=== PATIENT | male | born 1950 | race Caucasian/White ===

== ENCOUNTER 2019-03-28 13:30 | Emergency (ER) | payer MEDICARE, SELFPAY | END 2019-03-28 14:28 | disposition home or self-care (01) | PROVIDERS: Emergency Provider Emergency Medicine; Visit Provider Emergency Medicine | DX: S46.211A Strain of muscle, fascia and tendon of other parts of biceps, right arm, initial encounter (principal); X50.0XXA Overexertion from strenuous movement or load, initial encounter; Y92.009 Unspecified place in unspecified non-institutional (private) residence as the place of occurrence of the external cause | CPT/HCPCS: 73030; 99283 ==

== ENCOUNTER 2020-09-05 07:45 | Outpatient (CLI) | payer MEDICARE, SELFPAY ==
--- NOTE | 2020-09-05 08:28 | NMCV_ITS ---
NM adelina perf SPECT r/s* [id number] Anderson Hobbs Age: 70 Gender: M : 1950 Exam Date: 09/05/2020 09:17 Ordering Phys: Shandra Toro MD ([email or web address]) Technologist: KAE Muniz Exam Location: [facility] Indications: CHEST PAIN STRESS TEST Please see separate stress test report in [facility] for full findings IMAGE PROTOCOL Rest/Stress 1 Exercise Day Radiopharmaceutical Dose (mCi) Administration Site Administered by Rest: Tc-99m 11.0 IV KAE Muniz Sestamibi Stress:Tc-99m 32.9 IV KAE Araiza Sestamibi Rest: 05-Sep-2020 60 Discovery 630 Stress: 05-Sep-2020 20 Discovery 630 Radiopharmaceutical was injected at 85 % maximum heart rate. Images obtained in supine and prone position. SPECT RESULTS Technical Quality: Excellent Raw Data Analysis: Normal Image Corrections: No attenuation or motion correction applied Summed Stress Score: 2 Summed Rest Score: 3 Summed Difference Score: 1 PERFUSION FINDINGS Small sized perfusion abnormality of mild severity of mid inferior and apical lateral vidal on rest images with improved tracer uptake in stress images. This likely represents attenuation artifact. FUNCTIONAL RESULTS (calculated via Gated SPECT) Stress Image LV EF (%): 68 Stress EDV (mL):63 TID: 0.81 Stress ESV (mL):20 FUNCTIONAL FINDINGS: The left ventricle is normal in size. Transient Ischemia Dilatation of 0.81. There is normal left ventricular systolic function. The left ventricular ejection fraction is normal with a value of 68%. There is normal left ventricular wall thickening with no regional wall motion abnormality. Normal end diastolic and end systolic volumes. IMPRESSIONS 1. Myocardial perfusion imaging is normal. Attenuation artifact in mid inferior and apical lateral vidal. 2. Overall left ventricular systolic function is normal without regional wall motion abnormalities. 3. The left ventricular ejection fraction is normal with a value of 68%. 4. No coronary ischemia based on this study. Shandra Toro MD (Electronically Signed) Final Date: 07 September 2020 19:18 S
--- NOTE | 2020-09-05 08:28 | ECG_ITS ---
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 Interpretive Statements NAME OF STUDY: EXERCISE SESTAMIBI STRESS TEST INDICATION: Chest Pain Baseline blood pressure of 120/79 mm Hg, heart rate 59 beats per minute. EKG showed normal sinus rhythm, normal axis with normal ST-Ts. The patient exercised for 8 minutes 32 seconds on a modified Brendon protocol. Patient attained a maximum heart rate of 128 beats per minute(86% of the maximum predicted heart rate) with a blood pressure at the peak exercise of 178/79 mm Hg. The EKG at the peak exercise revealed sinus tachycardia with no significant ST-T wave changes. Patient did not have any chest pain or any significant arrhythmis with the exercise. Study was terminated as target heart rate was achieved and with exertional fatigue and shortness of breath. During the recovery phase, there were no new changes. Blood pressure at the end of the recovery phase was 152/76 mm Hg with a heart rate of 75 beats per minute. CONCLUSION: 1. Normal EKG response to treadmill exercise with modified Brendon protocol. 2. No exercise-induced chest pain or cardiac arrhythmia 3. Decreased exercise tolerance, attained a maximum of 6.6 METs. Maximum VO2 of 23.1 mL/kg/min. 4. Baseline normal blood pressure with normal response to exercise. 5. Perfusion scan will be documented separately. Electronically Signed On 09-08-2020 9:18:39 CDT by Shandra Toro M.D. [id number]
[2020-09-05 08:29] VITALS: BMI 26.8
[2020-09-05 10:01] VITALS: BP 159/77; PULSE 76
== END 2020-09-05 07:46 | disposition home or self-care (01) ==
PROVIDERS: Visit Provider Internal Medicine Cardiovascular Disease
DX: R07.9 Chest pain, unspecified (principal)
CPT/HCPCS: 78452; 93017; A9500

== ENCOUNTER 2020-09-13 11:27 | Emergency (ER) | payer MEDICARE, MEDICAID, SELFPAY ==
[2020-09-13 11:43] VITALS: BP 134/83; PULSE 70; RESP 16; TEMP 36.9; O2SAT 95
[2020-09-13 12:13] VITALS: BP 127/84; PULSE 64; RESP 16; O2SAT 96
--- NOTE | 2020-09-13 12:20 | XR_ITS ---
WS: [id number] Exam: XR chest 1V portable [id number] Date/Time of Exam: 09/13/2020 12:22 PM Reason For Exam: weakness, Comparison 11/17/2017. Findings: The lungs are clear and fully expanded. Costophrenic angles are sharp. No infiltrates. Bronchovascula r relief appears normal. Cardiac silhouette is unremarkable. Bony elements are intact. XR/XR chest 1V portable [id number] IMPRESSION: Unremarkable chest radiograph.
[2020-09-13 12:27] LABS: Basophils # 0.1 10^3/uL (0.0-0.1); Eosinophils # 0.3 10^3/uL (0.0-0.8); Eosinophils % 4.5 %; Hematocrit 40.4 % (42.0-52.0); Lymphocytes # 1.4 10^3/uL (0.8-4.8); Lymphocytes % 22.2 %; Mean Corpuscular HGB Conc 34.7 g/dL (30.0-36.0); Mean Corpuscular Hemoglobin 28.3 pg (28.0-34.0); Mean Corpuscular Volume 81.6 fL (80-94); Mean Platelet Volume 9.8 fL (7.4-10.4); Monocytes # 0.6 10^3/uL (0.2-0.9); Monocytes % 9.6 %; Neutrophils # 3.91 10^3/uL (1.8-7.7); Neutrophils % 62.5 %; Nucleated Red Blood Cells % 0 %; Platelet Count 201 10^3/cmm (130-400); Red Blood Count 4.95 10^6/uL (4.1-5.3); Red Cell Distribution Width 12.5 % (12.1-15.1); White Blood Count 6.3 10^3/uL (4.0-10.0)
--- NOTE | 2020-09-13 12:32 | ECG_ITS ---
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 Measurements Intervals [place] Rate: 61 P: 38 [place]: 167 QRS: 28 QRSD: 95 T: 51 QT: 405 QTc: 408 Interpretive Statements SINUS RHYTHM No previous ECG available for comparison Electronically Signed On 09-13-2020 17:46:02 CDT by Irina Johnson M.D. [id number]
[2020-09-13 12:57] VITALS: BP 127/84; PULSE 52; RESP 18; O2SAT 95
[2020-09-13 12:57] LABS: Troponin(5th) Baseline 11 ng/L (0-15)
[2020-09-13 12:58] LABS: Alanine Aminotransferase 22 U/L (0-41); Albumin Level 3.9 g/dL (3.5-5.2); Alkaline Phosphatase 95 IU/L (40-130); Anion Gap 13.9 (5-19); Aspartate Amino Transferase 19 U/L (0-40); Blood Urea Nitrogen 17 mg/dL (8-23); Calcium 8.8 mg/dL (8.5-10.5); Carbon Dioxide 25 mmol/L (22-29); Chloride 105 mmol/L (98-107); Creatine Phosphokinase 84 U/L (39-308); Globulin 2.3 g/dL (1.3-4.6); Glucose 106 mg/dL (65-115); Osmolality Calculated 292 mOsm/kg (285-295); Potassium 3.9 mmol/L (3.5-5.1); Sodium 140 mmol/L (136-145); Total Bilirubin 0.7 mg/dL (0.15-1.2); Total Protein 6.2 g/dL (6.6-8.7)
[2020-09-13 13:51] VITALS: BP 117/68; PULSE 51; RESP 16; O2SAT 95
[2020-09-13 13:57] VITALS: BP 117/68; PULSE 56; RESP 18; TEMP 36.6; O2SAT 96
--- NOTE | 2020-09-13 13:58 | W.ED.GENADLT ---
HPI - General Adult General: Chief complaint: General Medical Stated complaint: Extremely fatigued Time Seen by Provider: 09/13/20 12:05 History of Present Illness: HPI narrative: Slovak-speaking gentleman from home who is here with his granddaughter who is offering translation and they declined an official manager professional development. They are here because he has had extreme fatigue he denies any chest discomfort he occasionally feels dizzy she is interpreting for him and he has been making jokes that the granddaughter is interpreting back he denies any shortness of breath or sweaty just more that he feels so fatigued with everything he does. Denies palpitations syncope occasional dizziness denies any shortness of breath denies any family history or cardiac history he takes a medication called VAlCORDIN that are drops for nerves and restlessness and sleeping on a as needed basis he has no other cardiac history he did have a recent stress test from a drawing checker that was negative. Denies any headaches denies any numbness tingling changes in gait Review of Systems Narrative: General: denies fatigue, fever or chills HEENT: denies ear pain, denies nasal congestion, denies vision changes, denies sore throat Neck: denies masses or pain Resp: denies cough, denies shortness of breath, denies pleuritic pain Cardio: denies chest pain, denies edema GI: denies abdominal pain, denies N/V/D, denies black/tarry or bloody stools : denies hematuria, denies dysuria Neuro: denies headache, originally told granddaughter of some dizziness but denies it to me, denies motor or sensory changes Musculoskeletal: denies pain, denies swelling Skin: denies rashes Psych: denies SI or HI Endocrine: denies thyroid symptoms, denies lymphadenopathy all over ROS reviewed and patient denies PFSH ED PFSH: Medical History Acromioclavicular joint arthritis Family History Other No pertinent family history Social History Smoking and tobacco status: never smoked Second hand smoke exposure: No Alcohol intake: never Physical Exam Narrative: EXAM NARRATIVE: General: a/o/3, no distress Head: atraumatic HEENT: normal eyes, normal conjunctiva, normal hearing, normal external nose, normal mouth, mucous membranes moist Neck: FROM, trachea midline Chest: normal expansion, no gross deformities Resp: normal speech, no retractions, no accessory muscle use, CTA bilaterally Cardio: regular rate and rhythm and no murmur, no peripheral edema, normal peripheral pulses GI: soft, flat non tender, no guarding normal BS : deferred Musculoskeletal: FROM, no pain or gross deformities Neuro: a/o appropriate for age, no gross motor or sensory deficits, CN II-XII grossly intact, normal coordination, normal speech Skin: no rashes Psych: cooperative, normal mood and effect Course Vital Signs: Vital signs: Vital Signs Temperature 97.8 F 09/13/20 13:57 Pulse Rate 56 L 09/13/20 13:57 Respiratory Rate 18 09/13/20 13:57 Blood Pressure 117/68 09/13/20 13:57 Pulse Oximetry 96 09/13/20 13:57 MDM - General Adult MDM Narrative: Medical decision making narrative: Reviewed patient's chart he had a negative stress test recently and was seen by cardiology. Per nursing staff they felt that when he immediately got put on the monitor that he possibly had a heart rate in the 30s however we went back to the monitor and the only rhythm strips I pulled his heart rate were in the 60s. Patient's heart rate remained in the 60s his laboratory work is completely unremarkable including a chest x-ray discussed with the granddaughter who interpreted to the patient about doing a CT scan due to some recent dizziness however patient says he feels much better now that it must be the emergency room air that made him feel better. Discussed with him possibility of a Holter monitor whether he is having bradycardic spells and/or sick sinus syndrome. Spoke with his drawing checker Dr. Toro and she is going to arrange for him to have a Holter monitor and in fact he can go over there today and get it put on. Discussed with her and she interpreted to him that I cannot rule out all causes out of the emergency department recommended he get a CT scan he declines that and patient will be discharged to the heart care center to get his Holter monitor Medical Records: Attestation: I reviewed the patient's medical records. Lab Data: Attestation: I reviewed the patient's lab results. Labs: Lab Results 09/13/20 09/13/20 09/13/20 Range/Units 12:10 12:10 12:10 WBC 6.3 (4.0-10.0) 10^3/ uL RBC 4.95 (4.1-5.3) 10^6/u L Hgb 14.0 (11.7-16.6) g/dL Hct 40.4 L (42.0-52.0) % MCV 81.6 (80-94) fL MCH 28.3 (28.0-34.0) pg MCHC 34.7 (30.0-36.0) g/dL RDW 12.5 (12.1-15.1) % Plt Count 201 (130-400) 10^3/c mm MPV 9.8 (7.4-10.4) fL Neut % (Auto) 62.5 % Lymph % (Auto) 22.2 % Dunn % (Auto) 9.6 % Eos % (Auto) 4.5 % Baso % (Auto) 1.0 % Neut # (Auto) 3.91 (1.8-7.7) 10^3/u L Lymph # (Auto) 1.4 (0.8-4.8) 10^3/u L Dunn # (Auto) 0.6 (0.2-0.9) 10^3/u L Eos # (Auto) 0.3 (0.0-0.8) 10^3/u L Baso # (Auto) 0.1 (0.0-0.1) 10^3/u L Nucleated RBC % (a uto) 0 % Nucleated RBCs # 0.0 /100WBC Sodium 140 (136-145) mmol/L Potassium 3.9 (3.5-5.1) mmol/L Chloride 105 (98-107) mmol/L Carbon Dioxide 25 (22-29) mmol/L Anion Gap 13.9 (5-19) BUN 17 (8-23) mg/dL Creatinine 0.7 (0.7-1.2) mg/dL GFR Calculation Not Reportable Glucose 106 (65-115) mg/dL Calculated Osmolal ity 292 (285-295) mOsm/k g Calcium 8.8 (8.5-10.5) mg/dL Total Bilirubin 0.7 (0.15-1.2) mg/dL AST 19 (0-40) U/L ALT 22 (0-41) U/L Alkaline Phosphata se 95 (40-130) IU/L Creatine Kinase 84 (39-308) U/L Troponin T Baselin e 11 (0-15) ng/L Troponin T 120 Min [place] (0-15) ng/L Delta Troponin T (0-10) ABS# Total Protein 6.2 L (6.6-8.7) g/dL Albumin 3.9 (3.5-5.2) g/dL Globulin 2.3 (1.3-4.6) g/dL 09/13/20 Range/Units 13:43 WBC (4.0-10.0) 10^3/ uL RBC (4.1-5.3) 10^6/u L Hgb (11.7-16.6) g/dL Hct (42.0-52.0) % MCV (80-94) fL MCH (28.0-34.0) pg MCHC (30.0-36.0) g/dL RDW (12.1-15.1) % Plt Count (130-400) 10^3/c mm MPV (7.4-10.4) fL Neut % (Auto) % Lymph % (Auto) % Dunn % (Auto) % Eos % (Auto) % Baso % (Auto) % Neut # (Auto) (1.8-7.7) 10^3/u L Lymph # (Auto) (0.8-4.8) 10^3/u L Dunn # (Auto) (0.2-0.9) 10^3/u L Eos # (Auto) (0.0-0.8) 10^3/u L Baso # (Auto) (0.0-0.1) 10^3/u L Nucleated RBC % (a uto) % Nucleated RBCs # /100WBC Sodium (136-145) mmol/L Potassium (3.5-5.1) mmol/L Chloride (98-107) mmol/L Carbon Dioxide (22-29) mmol/L Anion Gap (5-19) BUN (8-23) mg/dL Creatinine (0.7-1.2) mg/dL GFR Calculation Glucose (65-115) mg/dL Calculated Osmolal ity (285-295) mOsm/k g Calcium (8.5-10.5) mg/dL Total Bilirubin (0.15-1.2) mg/dL AST (0-40) U/L ALT (0-41) U/L Alkaline Phosphata se (40-130) IU/L Creatine Kinase (39-308) U/L Troponin T Baselin e (0-15) ng/L Troponin T 120 Min [place] 11.94 (0-15) ng/L Delta Troponin T 0.94 (0-10) ABS# Total Protein (6.6-8.7) g/dL Albumin (3.5-5.2) g/dL Globulin (1.3-4.6) g/dL EKG Data^: EKG 1: Attestation: I personally reviewed and interpreted this EKG as follows: EKG interpretation date: 09/13/20 EKG interpretation time: 11:59 Interpretation: Normal sinus rhythm rate [address] changes or elevation Computer generated interpretation: Chest X-Ray 09/13/20 12:20 IMPRESSION: Unremarkable chest radiograph. Discharge Plan Discharge Patient Disposition: Home Clinical Impression: Fatigue, Weakness Condition: Stable Prescriptions: No Action No Known Home Medications RF: 0 Discharge Orders: Discharge ED (Routine); Ordered 09/13/20 Ordered By: Anamika Owen Referrals: Shandra Toro MD [Physician] - (call for follow up) Discharge Diet: Advance as tolerated and Usual diet Discharge Activity: Resume usual activity Patient Instructions: Fatigue, Weakness (ED) Activity Restrictions/Additional Instructions: You are to go to the heart care Center at discharge and get a Holter monitor as ordered by your drawing checker you need to follow-up with your drawing checker Dr. Barrientos return to the emergency department if chest pain worsening of symptoms passing out headaches vision changes weakness or dizziness Thank you for choosing [facility] for your healthcare needs today. Please realize this is an emergency room and that we are providing you with a medical screening exam and this may not be complete and all inclusive of all the testing and or work up that you may need to determine your ailment or severity of your illness. It is very important that you follow up as instructed or that you return to the Emergency Department should you have concerns or if your condition changes or worsens in any way. Coding Level of Care Code ED Preparation Department Supervisor for Juan Antonio Scales
[2020-09-13 14:33] LABS: Troponin 5 2HR 11.94 ng/L (0-15); Troponin 5 2HR Delta 0.94 ABS# (0-10)
== END 2020-09-13 13:57 | disposition home or self-care (01) ==
PROVIDERS: Emergency Provider Emergency Medicine
DX: R53.83 Other fatigue (principal); R53.1 Weakness
CPT/HCPCS: 71045; 80053; 82550; 84484; 85025; 93005; 99283

== ENCOUNTER 2021-11-21 19:56 | Emergency (ER) | payer MEDICARE, MEDICAID, SELFPAY ==
[2021-11-21 20:12] VITALS: BP 130/76; PULSE 65; RESP 16; TEMP 36.6; O2SAT 95
--- NOTE | 2021-11-21 20:36 | XRR_ITS ---
PROCEDURE INFORMATION: Exam: XR Left Shoulder Exam date and time: 11/21/2021 8:48 PM Age: 71 years old Clinical indication: Injury or trauma; Other: Lifting injury; Sprain or strain; Humerus and shoulder; Left; Patient HX: Was lifting car santana and felt a pop TECHNIQUE: Imaging protocol: Radiologic exam of the Left shoulder. Views: 2 or more views. COMPARISON: CR XR chest 1V portable [id number] 09/13/2020 12:19 PM FINDINGS: Bones/joints: No acute fracture or malalignment. Moderate acromioclavicular and glenohumeral joint degenerative changes. Soft tissues: Normal. XR/XR shoulder LT min 2V* [id number] IMPRESSION: No acute fracture or malalignment.
--- NOTE | 2021-11-21 20:43 | XRR_ITS ---
PROCEDURE INFORMATION: Exam: XR Left Humerus Exam date and time: 11/21/2021 8:53 PM Age: 71 years old Clinical indication: Injury or trauma; Other: Lifting injury; Sprain or strain; Arm, upper and shoulder; Left; Patient HX: Was lifting car santana and felt a pop TECHNIQUE: Imaging protocol: Radiologic exam of the Left humerus. Views: 2 or more views. COMPARISON: CR XR shoulder LT min 2V* [id number] 11/21/2021 8:48 PM FINDINGS: Bones/joints: No acute fracture or malalignment. Soft tissues: Normal. XR/[place] [id number] IMPRESSION: No acute fracture or malalignment.
--- NOTE | 2021-11-21 20:44 | ED_ITS ---
HPI - Extremity Problem General: Chief complaint: Extremity Injury, Upper Stated complaint: left arm injury Time Seen by Provider: 11/21/21 20:37 Source: patient Mode of arrival: ambulatory Limitations: no limitations History of Present Illness: 71-year-old male states that he was lifting a car santana roughly 2 hours ago he states he felt a sudden pop in his left arm and left upper arm and shoulder pain since then the pain is sharp in nature much worse with movement he states having a hard time lifting that arm denies any other injuries denies neck pain. Associated symptoms: Deny chest pain, fever(s) or rash Review of Systems Const: Denies: fever(s), chills, body aches or change in appetite Eyes: Denies: blurry vision or eye discomfort ENMT: Denies: throat pain or dental pain Card: Denies: chest pain Resp: Denies: dyspnea GI: Denies: abdominal pain, nausea, vomiting or diarrhea : Denies: dysuria Musc: Reports: extremity pain; Denies: neck pain or back pain Skin/Breast: Denies: rash Neuro: Denies: headache(s) Psych: Denies: depression Abdias/Lymph: Denies: easy bruising All/Imm: Denies: urticaria PFSH ED PFSH: Medical History Acromioclavicular joint arthritis Family History Other No pertinent family history Social History Smoking and tobacco status: never smoked Second hand smoke exposure: No Alcohol intake: never Physical Exam Const: COMMON NORMALS: no acute distress, patient oriented x3 and healthy appearing HENMT: COMMON NORMALS: normocephalic and atraumatic HEAD & SCALP: normocephalic and atraumatic Eye: COMMON NORMALS: Equal, round and reactive pupils present and EOMs intact bilaterally PUPIL: Yes Equal, round and reactive pupils present Neck/C-Spine: COMMON NORMALS: full ROM and supple Chest: COMMONS NORMALS: normal inspection of the chest Resp: COMMON NORMALS: normal respiratory effort and No retractions Cardio: COMMON NORMALS: regular rate, regular rhythm and No murmurs present (Cardio) RATE: regular rate RHYTHM: regular rhythm GI: INSPECTION: Yes normal to inspection Extremity: NARRATIVE EXTREMITY EXAM: Tenderness over left shoulder and upper arm has pain with movement he is not able lift his arm above his head distal pulses sensation intact no deformity noted Neuro: COMMON NORMALS: patient oriented x3, moves all extremities and no focal motor deficits Psych: COMMON NORMALS: mental status grossly normal, Normal thought process present and cooperative THOUGHT PROCESS: Normal thought process present Skin: COMMON NORMALS: no rashes or lesions noted and no wounds GENERAL SKIN EXAM: no rashes or lesions noted Course Vital Signs: Vital signs: Vital Signs Temperature 97.8 F 11/21/21 20:12 Pulse Rate 69 11/21/21 20:48 Respiratory Rate 16 11/21/21 20:48 Blood Pressure 135/85 11/21/21 20:48 Pulse Oximetry 96 11/21/21 20:48 Oxygen Delivery Me thod 11/21/21 20:48 MDM - Extremity (Nontraumatic) Medical Decision Making Patient presents here with a shoulder sprain. X-ray shows no fracture we will place him in a sling getting follow-up orthopedics he is to return if worsening he understands agrees to plan. Discharge Plan Discharge Patient Disposition: Home Clinical Impression: Sprain of left shoulder Qualifiers: Encounter type: initial encounter Shoulder sprain type: unspecified sprain Qualified Code(s): S43.402A - Unspecified sprain of left shoulder joint, initial encounter Condition: Stable Prescriptions: New Naprosyn 500 mg tablet 500 mg PO BID PRN (Reason: pain) Qty: 20 0RF No Action Valocordin .Route PRN Rx Instructions: 15-20 drops PRN Discharge Orders: Discharge ED (Routine); Ordered 11/21/21 Ordered By: Mercedes Campbell Referrals: Guy Atkins DO [Physician] - 1-3 days Discharge Diet: Low Cholesterol Discharge Activity: Resume usual activity Patient Instructions: Shoulder Sprain (ED) Coding Level of Care Code ED Circular Ripsaw Operator for Juan Antonio Scales Exam Comprehensive
[2021-11-21] MEDS: HYDROcodone-acetaminophen 5-325 mg Tablet 1 TAB PO (20:45)
[2021-11-21 20:48] VITALS: BP 135/85; PULSE 69; RESP 16; O2SAT 96
[2021-11-21 21:46] VITALS: BP 129/87; PULSE 67; RESP 18; O2SAT 97
--- NOTE | 2021-11-22 12:15 | DCPLANNER ---
Addendum entered by Masha Hwang 11/30/21 12:48: Patient had a follow up appointment scheduled for 11.27.21 with ortho - patient attended appointment. Original Note: manager of digital had message to schedule a follow up appointment for patient with ortho. manager of digital sent patients information to the front office staff at ortho. Patients information will be printed and reviewed. Clinic will call patient with appointment information.
== END 2021-11-21 21:49 | disposition home or self-care (01) ==
PROVIDERS: Emergency Provider Emergency Medicine
DX: S43.402A Unspecified sprain of left shoulder joint, initial encounter (principal); X50.0XXA Overexertion from strenuous movement or load, initial encounter
CPT/HCPCS: 73030; 73060; 99283

== ENCOUNTER → 2021-11-27 10:28 | Outpatient (BNVA) | payer MEDICARE, MEDICAID, SELFPAY | PROVIDERS: Visit Provider Nurse Practitioner Family | DX: S43.422A Sprain of left rotator cuff capsule, initial encounter (principal); X50.9XXA Other and unspecified overexertion or strenuous movements or postures, initial encounter | CPT/HCPCS: 99213; 99214 ==

== ENCOUNTER 2022-03-21 08:49 | Emergency (ER) | payer MEDICARE, MEDICAID, SELFPAY ==
[2022-03-21] VITALS (9 sets, daily range): BP systolic 110–140; BP diastolic 66–81; PULSE 49–61; RESP 11–23; TEMP 36.4; O2SAT 95–97; BMI 26.4
--- NOTE | 2022-03-21 09:27 | CT_ITS ---
WS: [id number] CT ABDOMEN AND PELVIS NONCONTRAST HISTORY: Abdominal pain, LEFT lower quadrant. TECHNIQUE: Imaging performed through the abdomen and pelvis. Coronal and sagittal reformats are submi tted. All CT scans at [facility] use at least one of these dose optimization techniques: auto mated exposure control; mA and/or kV adjustment per patient size (includes targeted exams where dose is matched to clinical indication); or iterative reconstruction. DLP: 513.67 mGy.cm COMPARISON: 08/18/2013 Lower thorax: Subcentimeter noncalcified nodules at the lung bases, unchanged since 2013. No pneumoni a. Heart is mildly enlarged. Liver: Normal size liver. No mass or bile duct dilatation. Gallbladder: Normal gallbladder. Pancreas: Normal size and attenuation. Normal pancreatic duct. No pancreatitis or mass. Spleen: Normal. Adrenal glands: Normal. No mass. Right kidney: Normal size kidney with no mass or hydronephrosis. Left kidney: Normal size kidney with no mass or hydronephrosis. Aorta: Mild atherosclerosis abdominal aorta with no aneurysm. No free fluid, intraperitoneal air or significant lymphadenopathy. GI tract: Prior appendectomy. Stomach is nondistended. No small bowel obstruction. No diverticulosis. No submucosal edema within the colon. Abdominal wall: Negative. No hernia. Pelvis: Unremarkable urinary bladder. Mild prostate enlargement. Osseous structures: Degenerative thoracolumbar scoliosis. CT/CT abdomen pelvis wo con [id number] IMPRESSION: 1. No acute abdominal or pelvic abnormalities. 2. Prior appendectomy. 3. No evidence for diverticulosis or diverticulitis. 4. No renal obstruction.
--- NOTE | 2022-03-21 09:28 | PC.PHAR ---
PTS GRANDSON VERIFIED PTS MEDICATIONS-STATES THE PT TAKES NO RX MEDICATIONS AND ONLY TAKES ASPIRIN PRN
[2022-03-21] MEDS: sodium chloride 0.9% 1,000 ML 999 ML IV (09:40)
--- NOTE | 2022-03-21 09:40 | ECG_ITS ---
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 Measurements Intervals [place] Rate: 55 P: 32 RI: 164 QRS: 29 QRSD: 96 T: 54 QT: 427 QTc: 411 Interpretive Statements SINUS BRADYCARDIA Compared to ECG 09/13/2020 11:59:09 Sinus rhythm no longer present Electronically Signed On 03-21-2022 12:56:53 DEVELOPER PROGRAMMER ANALYST by Juve Andre M.D. [email or web address] centerArt [facility] [facility] shawTherabiol/store/OM/[id number]
[2022-03-21 09:43] LABS: Basophils % 0.7 %; Eosinophils # 0.3 10^3/uL (0.0-0.8); Eosinophils % 5.5 %; Hematocrit 44.7 % (42.0-52.0); Hemoglobin 15.1 g/dL (11.7-16.6); Lymphocytes # 1.2 10^3/uL (0.8-4.8); Lymphocytes % 19.9 %; Mean Corpuscular HGB Conc 33.8 g/dL (30.0-36.0); Mean Corpuscular Hemoglobin 28.3 pg (28.0-34.0); Mean Corpuscular Volume 83.7 fl (80-94); Mean Platelet Volume 9.9 fL (7.4-10.4); Monocytes # 0.6 10^3/uL (0.2-0.9); Monocytes % 9.5 %; Neutrophils # 3.75 10^3/uL (1.8-7.7); Neutrophils % 64.4 %; Nucleated Red Blood Cells % 0 %; Platelet Count 208 10^3/cmm (130-400); Red Blood Count 5.34 10^6/uL (4.1-5.3); Red Cell Distribution Width 12.7 % (12.1-15.1); White Blood Count 5.8 10^3/uL (4.0-10.0)
[2022-03-21 10:03] LABS: Alanine Aminotransferase 30 U/L (0-41); Alkaline Phosphatase 104 U/L (40-130); Aspartate Amino Transferase 24 U/L (0-40); Blood Urea Nitrogen 15 mg/dL (8-23); Calcium 9.2 mg/dL (8.5-10.5); Carbon Dioxide 28 mmol/L (22-29); Chloride 104 mmol/L (98-107); Globulin 3.2 g/dL (1.3-4.6); Glucose 105 mg/dL (65-115); Lipase 33 U/L (13-60); Osmolality Calculated 291 mOsm/kg (285-295); Sodium 140 mmol/L (136-145); Total Bilirubin 0.7 mg/dL (0.15-1.2); Total Protein 7.2 g/dL (6.6-8.7)
--- NOTE | 2022-03-21 10:13 | W.ED.ABDPA2 ---
HPI - Abdominal Pain General: Chief Complaint: Abdominal Pain Stated Complaint: abd pain Time Seen by Provider: 03/21/22 09:06 Source: patient Mode of arrival: ambulatory History of Present Illness: 72-year-old male presents emergency room for left lower quadrant pain that began yesterday late in the afternoon. He has been in usual bowel and bladder function without any problems denies any hematemesis coffee-ground emesis melena or hematochezia. Was has not is mild low-grade fever loss of appetite. No dysuria urgency frequency or hematuria. No chest pain no cough or shortness of breath MD elicited complaint: abdominal pain Pertinent past history: none Onset (ago): hour(s) Pain Consistency: constant Location: LLQ Severity: mild Quality: cramping Radiation: none Exacerbating factors: other (Palpation) Relieving factors: nothing Associated Symptoms: Reports bloating, GI cramping, fever(s) and nausea; Denies anorexia, belching, change in bowel habits, change in stool character, chills, coffee ground emesis, constipation, diarrhea, dyspepsia, dysuria, excessive flatus, heartburn, hematochezia, hematuria, hematemesis, fecal incontinence, loose stools, melena, poor appetite, syncope and vomiting Review of Systems Const: Reports: fever(s); Denies: chills ENMT: Denies: throat pain, ear or mastoid pain, nasal discharge or nasal congestion Card: Denies: syncope Resp: Denies: dyspnea, productive cough or non-productive cough GI: Reports: abdominal pain, nausea, bloating and GI cramping; Denies: vomiting, hematemesis, coffee ground emesis, heartburn, diarrhea, constipation, belching, excessive flatus, fecal incontinence, change in bowel habits, change in stool character, hematochezia or melena : Denies: dysuria or hematuria Skin/Breast: Denies: rash or pruritus PFSH ED PFSH: Medical History Acromioclavicular joint arthritis Family History Other No pertinent family history Social History Smoking and tobacco status: never smoked Second hand smoke exposure: No Alcohol intake: never Physical Exam Const: COMMON NORMALS: no acute distress GENERAL APPEARANCE: cooperative and comfortable ORIENTATION/CONSCIOUSNESS: Yes awake HENMT: COMMON NORMALS: normocephalic, atraumatic and hearing grossly normal bilaterally HEAD & SCALP: normocephalic and atraumatic Resp: COMMON NORMALS: normal respiratory effort, No retractions, No use of accessory muscles and clear to auscultation bilaterally AUSCULTATION: clear to auscultation bilaterally Cardio: COMMON NORMALS: regular rate, regular rhythm and No murmurs present (Cardio) RATE: regular rate RHYTHM: regular rhythm GI: COMMON NORMALS: Soft to palpation and No hepatosplenomegaly present AUSCULTATION: Yes normoactive bowel sounds PALPATION: Yes Soft to palpation, Yes Tenderness to palpation present (GI) Details: LLQ, No Guarding due to palpation present (GI) and Yes No hepatosplenomegaly present Extremity: COMMON NORMALS: normal to inspection, capillary refill normal, no clubbing, cyanosis or edema, no calf tenderness and no pedal edema Skin: COMMON NORMALS: no rashes or lesions noted GENERAL SKIN EXAM: no rashes or lesions noted Course Vital Signs: Vital signs: Vital Signs Temperature 97.5 F L 03/21/22 09:10 Pulse Rate 54 L 03/21/22 12:30 Respiratory Rate 17 03/21/22 12:30 Blood Pressure 110/66 03/21/22 12:30 Pulse Oximetry 97 03/21/22 12:30 Oxygen Delivery Me thod 03/21/22 09:36 MDM - Abdominal Pain Medical Decision Making His pain is very focal to the left lower quadrant. CT did not show any acute diverticulitis however I am suspicious he may have some inflammation in the bowel that are causing his symptoms we did put him on Cipro and Flagyl if not improving over the next week should follow-up with his primary care doctor. Medical Records I reviewed the patient's medical records. Lab Data I reviewed the patient's lab results. 03/21/22 09:30 03/21/22 09:30 Labs/Radiology: Radiology Impressions Abdomen/Pelvis CT 03/21/22 09:27 IMPRESSION: 1. No acute abdominal or pelvic abnormalities. 2. Prior appendectomy. 3. No evidence for diverticulosis or diverticulitis. 4. No renal obstruction. Laboratory Results WBC 5.8 10^3/uL (4.0-10.0) 03/21/22 09:30 RBC 5.34 10^6/uL (4.1-5.3) H 03/21/22 09:30 Hgb 15.1 g/dL (11.7-16.6) 03/21/22 09:30 Hct 44.7 % (42.0-52.0) 03/21/22 09:30 MCV 83.7 fl (80-94) 03/21/22 09:30 MCH 28.3 pg (28.0-34.0) 03/21/22 09:30 MCHC 33.8 g/dL (30.0-36.0) 03/21/22 09:30 RDW 12.7 % (12.1-15.1) 03/21/22 09:30 Plt Count 208 10^3/cmm (130-400) 03/21/22 09:30 MPV 9.9 fL (7.4-10.4) 03/21/22 09:30 Neut % (Auto) 64.4 % 03/21/22 09:30 Lymph % (Auto) 19.9 % 03/21/22 09:30 [place] % (Auto) 9.5 % 03/21/22 09:30 Eos % (Auto) 5.5 % 03/21/22 09:30 Baso % (Auto) 0.7 % 03/21/22 09:30 Neut # (Auto) 3.75 10^3/uL (1.8-7.7) 03/21/22 09:30 Lymph # (Auto) 1.2 10^3/uL (0.8-4.8) 03/21/22 09:30 [place] # (Auto) 0.6 10^3/uL (0.2-0.9) 03/21/22 09:30 Eos # (Auto) 0.3 10^3/uL (0.0-0.8) 03/21/22 09:30 Baso # (Auto) 0.0 10^3/uL (0.0-0.1) 03/21/22 09:30 Nucleated RBC % (auto) 0 % 03/21/22 09:30 Nucleated RBCs # 0.0 /100WBC 03/21/22 09:30 Sodium 140 mmol/L (136-145) 03/21/22 09:30 Potassium 4.0 mmol/L (3.5-5.1) 03/21/22 09:30 Chloride 104 mmol/L (98-107) 03/21/22 09:30 Carbon Dioxide 28 mmol/L (22-29) 03/21/22 09:30 Anion Gap 12.0 (5-19) 03/21/22 09:30 BUN 15 mg/dL (8-23) 03/21/22 09:30 Creatinine 0.8 mg/dL (0.7-1.2) 03/21/22 09:30 GFR Calculation Not Reportable 03/21/22:30 Glucose 105 mg/dL (65-115) 03/21/22 09:30 Calculated Osmolality 291 mOsm/kg (285-295) 03/21/22 09:30 Calcium 9.2 mg/dL (8.5-10.5) 03/21/22 09:30 Total Bilirubin 0.7 mg/dL (0.15-1.2) 03/21/22 09:30 AST 24 U/L (0-40) 03/21/22 09:30 ALT 30 U/L (0-41) 03/21/22 09:30 Alkaline Phosphatase 104 U/L (40-130) 03/21/22 09:30 Total Protein 7.2 g/dL (6.6-8.7) 03/21/22 09:30 Albumin 4.0 g/dL (3.5-5.2) 03/21/22 09:30 Globulin 3.2 g/dL (1.3-4.6) 03/21/22 09:30 Lipase 33 U/L (13-60) 03/21/22 09:30 Urine Color Yellow (Yellow) 03/21/22 11:06 Urine Appearance Clear (CLEAR) 03/21/22 11:06 Urine pH 8 (5-7) H 03/21/22 11:06 Ur Specific [place] 1.010 (1.005-1.030) 03/21/22 11:06 Urine Protein Neg (Negative) 03/21/22 11:06 Urine Glucose (UA) Norm (Normal) 03/21/22 11:06 Urine Ketones Negative (Negative) 03/21/22 11:06 Urine Blood Neg (Negative) 03/21/22 11:06 Urine Nitrate Negative (Negative) 03/21/22 11:06 Urine Bilirubin Neg (Negative) 03/21/22 11:06 Prot Sulfosalicylic Acd Negative (Negative) 03/21/22 11:06 Urine Urobilinogen Neg mg/dL (Negative) 03/21/22 11:06 Ur Leukocyte Esterase Negative (Negative) 03/21/22 11:06 Discharge Plan Discharge Patient Disposition: Home Clinical Impression: Diverticulitis Condition: Stable Prescriptions: New Cipro 500 mg tablet 500 mg PO BID Qty: 14 0RF metronidazole 500 mg tablet 500 mg PO BID 7 Days Qty: 14 0RF No Action calcium carbonate [Calcium 500] 500 mg calcium (1,250 mg) Tablet 500 mg PO DAILY Aspir-81 81 mg Tablet,Delayed Release (Dr/Ec) 81 mg PO PRN Vitamin C 500 mg Tablet 500 mg PO DAILY Discharge Orders: Discharge ED (Routine); Ordered 03/21/22 Ordered By: Cam Dunn Discharge Diet: Clear Liquid Discharge Activity: Increase activity as tolerated Patient Instructions: Opioid Safety, Pain Management Activity Restrictions/Additional Instructions: You were seen today for abdominal pain. Based on your exam suspicious for diverticulitis although no significant abnormalities were found on the CT put. Would recommend you start on ciprofloxacin and metronidazole for 7 days. Clear liquid diet today and advance as tolerated. Coding Level of Care Code ED Corrugator Machine Operator for Chg Fwd Exam Detailed
[2022-03-21] MEDS: ondansetron 2 mg/ML SDV 2 mL 4 MG IVP (10:58)
[2022-03-21] MEDS: morphine 4 mg/mL SDV 1 mL IVP (10:58)
[2022-03-21 11:18] LABS: Add Urine Microscopic? NO; Charge for UA Resulting for Rev
[2022-03-21 11:43] LABS: Bilirubin Urine Neg (Negative); Blood Urine Neg (Negative); Glucose Urine UA Norm (Normal); Ketones Urine Negative (Negative); Leukocyte Esterase Urine Negative (Negative); Nitrate Urine Negative (Negative); Protein Urine Neg (Negative); Sulfosalicylic Acid Urine Negative (Negative); Urine Appearance Clear (CLEAR); Urine Color Yellow (Yellow); Urobilinogen Urine Neg (Negative); pH Urine 8 (5-7)
== END 2022-03-21 12:40 | disposition home or self-care (01) ==
PROVIDERS: Emergency Provider Family Medicine
DX: K57.92 Diverticulitis of intestine, part unspecified, without perforation or abscess without bleeding (principal); Z79.82 Long term (current) use of aspirin
CPT/HCPCS: 74176; 80053; 81003; 83690; 85025; 93005; 96361; 96374; 96375; 99285; J2270; J2405; J7030

== ENCOUNTER → 2022-08-16 10:34 | Outpatient (BNVA) | payer MEDICARE, MEDICAID, SELFPAY | PROVIDERS: PCP Family Medicine; Visit Provider Internal Medicine Cardiovascular Disease | DX: R07.9 Chest pain, unspecified (principal); R00.1 Bradycardia, unspecified; R53.83 Other fatigue | CPT/HCPCS: 93005; 99214 ==

== ENCOUNTER → 2022-08-16 10:39 | Outpatient (BNVA) | payer MEDICARE, MEDICAID, SELFPAY | PROVIDERS: PCP Family Medicine; Visit Provider Internal Medicine Cardiovascular Disease | DX: R00.1 Bradycardia, unspecified (principal); R07.9 Chest pain, unspecified; R42 Dizziness and giddiness; R53.83 Other fatigue; M19.019 Primary osteoarthritis, unspecified shoulder | CPT/HCPCS: 93005 ==

== ENCOUNTER 2022-09-17 07:15 | Outpatient (CLI) | payer MEDICARE, MEDICAID, SELFPAY ==
[2022-09-17 07:32] VITALS: BMI 26.4
--- NOTE | 2022-09-17 07:34 | ECG_ITS ---
[facility] Test Date: 2022-09-17 Pat Name: Anderson Hobbs Department: Room: Gender: Male Oil Deliverer: : 1950 Requested By: Shandra Toro Order Number: [id number] Jessika MD: Shandra Toro M.D. Interpretive Statements NAME OF STUDY: LEXISCAN SESTAMIBI STRESS TEST INDICATION: Chest Pain PROCEDURE: At the baseline, the blood pressure was 148/107 mm Hg with a heart rate of 51 bpm. The electrocardiogram showed sinus bardycardia, normal axis with normal ST and T's. ??? The Lexiscan was infused over a period of 20 seconds. A total of 0.4 milligrams of Lexiscan was infused. The stress phase was continued for a total of 5 minutes. Heart rate at the end of the stress phase was 76 bpm with a blood pressure of of 127/77 mm Hg. The EKG at the peak infusion revealed sinus rhythm with no significant ST-T wave changes. ??? Sestamibi was injected 20 seconds after the Lexiscan infusion. ??? Blood pressure at the end of the recovery phase was 122/76 mm Hg with a heart rate of 74 beats per minute. ??? CONCLUSION: 1. Normal EKG response to LexiScan infusion. 2. No LexiScan induced chest pain or cardiac arrhythmia. 3. Normal blood pressure and heart rate response. 4. Sestamibi/sestamibi perfusion scan pending; see separate report. Electronically Signed On 09-21-2022 8:54:56 CDT by Shandra Toro M.D. [email or web address] memorial [email or web address]/store/[id number]
--- NOTE | 2022-09-17 07:34 | NMCV_ITS ---
NM adelina perf SPECT r/s* [id number] Anderson Hobbs Age: 72 Gender: M : 1950 Exam Date: 09/17/2022 08:17 Ordering Phys: Shandra Toro MD ([email or web address]) Technologist: KAE Carballo Exam Location: [facility] Indications: Chest Pain STRESS TEST Please see separate stress test report in [facility] for full findings IMAGE PROTOCOL Rest/Stress 1 Lexiscan Day Radiopharmaceutical Dose (mCi) Administration Site Administered by Rest: Tc-99m 10.6 IV Diego Gardner, DOPE SPRAYER Sestamibi Stress:Tc-99m 32.6 IV Diego Gardner, DOPE SPRAYER Sestamibi Rest: 17-Sep-2022 60 Discovery 630 Stress: 17-Sep-2022 30 Discovery 630 0.4mg Lexiscan. Images obtained in supine and prone position. SPECT RESULTS Technical Quality: Excellent Raw Data Analysis: Normal Image Corrections: No attenuation or motion correction applied Summed Stress Score: 0 Summed Rest Score: 3 Summed Difference Score: 0 PERFUSION FINDINGS Small sized perfusion abnormality of mild severity of mid to apical inferior, apical lateral vidal on rest images with improved tracer uptake in stress images. FUNCTIONAL RESULTS (calculated via Gated SPECT) Stress Image LV EF (%): 68 Stress EDV (mL):73 TID: 0.96 Stress ESV (mL):23 FUNCTIONAL FINDINGS: The left ventricle is normal in size. Transient Ischemia Dilatation of 0.96. The left ventricular ejection fraction is normal with a value of 68%. There is normal left ventricular wall thickening. IMPRESSIONS 1. Myocardial perfusion imaging is normal. 2. Overall left ventricular systolic function is normal without regional wall motion abnormalities, LVEF=68%. 3. EKG portion of the study will be reported separately. 4. Scan indicates low risk for cardiac events. Shandra Toro MD (Electronically Signed) Final Date: 20 September 2022 17:17 S
[2022-09-17] MEDS: regadenoson 0.4 Mg/5 ml Syringe IVP (08:57)
[2022-09-17 09:05] VITALS: BP 122/76; PULSE 75
== END 2022-09-17 07:16 | disposition home or self-care (01) ==
PROVIDERS: PCP Family Medicine; Visit Provider Internal Medicine Cardiovascular Disease
DX: R07.9 Chest pain, unspecified (principal)
CPT/HCPCS: 36415; 78452; 93017; 96374; 99214; A9500; J2785

== ENCOUNTER → 2023-06-02 10:53 | Outpatient (BNVA) | payer MEDICARE, MEDICAID, SELFPAY | PROVIDERS: PCP Family Medicine; Visit Provider Nurse Practitioner Family | DX: R07.89 Other chest pain (principal) | CPT/HCPCS: 99213 ==

== ENCOUNTER 2023-11-02 13:28 | Emergency (ER) | payer MEDICARE, MEDICAID, SELFPAY ==
[2023-11-02 13:37] VITALS: BP 132/78; PULSE 53; RESP 16; TEMP 36.6; O2SAT 97; BMI 29.3
--- NOTE | 2023-11-02 13:42 | ECG_ITS ---
[facility] Test Date: 2023-11-02 Pat Name: Anderson Hobbs Department: Room: Gender: Male Epic Cupid Analyst: : 1950 Requested By: Cam Kim Order Number: [id number] Jessika MD: Travis Saldana M.D. Measurements Intervals [place] Rate: 50 P: 36 MS: 154 QRS: 45 QRSD: 95 T: 53 QT: 441 QTc: 404 Interpretive Statements SINUS BRADYCARDIA Compared to ECG 08/16/2022 10:45:58 Sinus rhythm no longer present Electronically Signed On 11-03-2023 14:07:11 CDT by Travis Saldana M.D. [email or web address] Air Guitar Companyturning point mature adult care unitWhat's in My Handbagpremier health atrium medical centerJott/store/OM/[id number]
--- NOTE | 2023-11-02 13:52 | XRR_ITS ---
PROCEDURE INFORMATION: Exam: XR Chest Exam date and time: 11/02/2023 2:09 PM Age: 73 years old Clinical indication: Chest pressure; Patient HX: Chest pain; Weakness; Dizziness TECHNIQUE: Imaging protocol: Radiologic exam of the chest. Views: 1 view. COMPARISON: CR XR chest 1V portable [id number] 09/13/2020 12:19 PM FINDINGS: Lungs: Unremarkable. No consolidation. Pleural spaces: Unremarkable. No pleural effusion. No pneumothorax. Heart/Mediastinum: Unremarkable. No cardiomegaly. Bones/joints: Unremarkable. XR/XR chest 1V portable [id number] IMPRESSION: No acute findings.
--- NOTE | 2023-11-02 13:59 | W.ED.CHESTPA ---
HPI - Chest Pain General: Chief Complaint: Chest Pain Stated Complaint: Weakness, Dizzy Time Seen by Provider: 11/02/23 13:52 History of Present Illness: 73-year-old male presents emergency room complaining of chest discomfort weakness and dizziness for the last 2 days. No radiation of pain no associated shortness of breath. He describes more as a pressure. He has not noticed anything that exacerbates or relieves it no recent illnesses. Patient's grandson translates, declined glass cleaning machine tender Normal Lexiscan sestamibi stress test in August 2022. Associated symptoms: Deny abdominal pain, dyspnea or fever(s) Review of Systems Const: Denies: fever(s) or chills Card: Reports: chest pain ( Chest pressure ) Resp: Denies: dyspnea GI: Denies: abdominal pain : Denies: dysuria, urinary frequency or urinary urgency Musc: Denies: neck pain or back pain Skin/Breast: Denies: rash PFSH ED PFSH: Medical History Acromioclavicular joint arthritis Family History Other No pertinent family history Social History Smoking and tobacco/nicotine status: never used tobacco/nicotine Second hand smoke exposure: No Alcohol intake: never Substance/Drug Use: never Physical Exam Const: COMMON NORMALS: no acute distress GENERAL APPEARANCE: cooperative and comfortable ORIENTATION/CONSCIOUSNESS: Yes awake, Yes oriented to person, Yes oriented to place and Yes oriented to time HENMT: COMMON NORMALS: normocephalic, atraumatic and hearing grossly normal bilaterally HEAD & SCALP: normocephalic and atraumatic Resp: COMMON NORMALS: normal respiratory effort, No retractions, No use of accessory muscles and clear to auscultation bilaterally AUSCULTATION: clear to auscultation bilaterally Cardio: COMMON NORMALS: regular rate, regular rhythm and No murmurs present (Cardio) RATE: regular rate RHYTHM: regular rhythm GI: COMMON NORMALS: Soft to palpation and No hepatosplenomegaly present AUSCULTATION: Yes normoactive bowel sounds PALPATION: Yes Soft to palpation, No Tenderness to palpation present (GI), No Guarding due to palpation present (GI) and Yes No hepatosplenomegaly present Extremity: COMMON NORMALS: normal to inspection, capillary refill normal, no clubbing, cyanosis or edema, no calf tenderness and no pedal edema Neuro: SENSORIUM/ORIENTATION: Yes oriented to person, Yes oriented to place and Yes oriented to time Skin: COMMON NORMALS: no rashes or lesions noted GENERAL SKIN EXAM: no rashes or lesions noted Course Vital Signs: Vital signs: Vital Signs Temperature 97.8 F 11/02/23 13:37 Pulse Rate 48 L 11/02/23 17:12 Respiratory Rate 16 11/02/23 13:37 Blood Pressure 121/85 11/02/23 17:12 Pulse Oximetry 96 11/02/23 17:12 Oxygen Delivery Me thod Room Air 11/02/23 17:12 MDM - Chest Pain Medical Decision Making EKG and cardiac enzymes trending negative no acute EKG changes noted on the chart. Will discharge patient home start him on aspirin daily and isosorbide 30 mg once daily. Set him up for outpatient Lexiscan sestamibi stress test Lab Data 11/02/23 14:21 11/02/23 14:21 Radiology Impressions Chest X-Ray 11/02/23 13:52 IMPRESSION: No acute findings. Laboratory Results WBC 4.94 10^3/uL (3.29-11.43) 11/02/23 14:21 RBC 4.79 10^6/uL (3.85-5.65) 11/02/23 14:21 Hgb 13.70 g/dL (11.27-16.99) 11/02/23 14:21 Hct 39.8 % (37-53) 11/02/23 14:21 MCV 83.1 fl (82-101) 11/02/23 14:21 MCH 28.6 pg (27-33) 11/02/23 14:21 MCHC 34.4 g/dL (30-55) 11/02/23 14:21 RDW 12.7 % (12.1-15.1) 11/02/23 14:21 Plt Count 186 10^3/cmm (157-399) 11/02/23 14:21 MPV 9.9 fL (7.4-10.4) 11/02/23 14:21 Neut % (Auto) 58.9 % 11/02/23 14:21 Lymph % (Auto) 24.1 % 11/02/23 14:21 [place] % (Auto) 8.9 % 11/02/23 14:21 Eos % (Auto) 7.1 % 11/02/23 14:21 Baso % (Auto) 0.8 % 11/02/23 14:21 Neut # (Auto) 2.91 10^3/uL (1.8-7.7) 11/02/23 14:21 Lymph # (Auto) 1.2 10^3/uL (0.8-4.8) 11/02/23 14:21 [place] # (Auto) 0.4 10^3/uL (0.2-0.9) 11/02/23 14:21 Eos # (Auto) 0.4 10^3/uL (0.0-0.8) 11/02/23 14:21 Baso # (Auto) 0.0 10^3/uL (0.0-0.1) 11/02/23 14:21 Nucleated RBC % (auto) 0 % 11/02/23 14:21 Nucleated RBCs # 0.0 /100WBC 11/02/23 14:21 Sodium 140 mmol/L (136-145) 11/02/23 14:21 Potassium 3.7 mmol/L (3.5-5.1) 11/02/23 14:21 Chloride 105 mmol/L (98-107) 11/02/23 14:21 Carbon Dioxide 22 mmol/L (22-29) 11/02/23 14:21 Anion Gap 16.7 (5-19) 11/02/23 14:21 BUN 15 mg/dL (8-23) 11/02/23 14:21 Creatinine 0.9 mg/dL (0.7-1.2) 11/02/23 14:21 GFR Calculation Not Reportable 11/02/23 14:21 Glucose 155 mg/dL (65-115) H 11/02/23 14:21 Calculated Osmolality 294 mOsm/kg (285-295) 11/02/23 14:21 Calcium 8.3 mg/dL (8.5-10.5) L 11/02/23 14:21 Total Bilirubin 0.5 mg/dL (0.15-1.2) 11/02/23 14:21 AST 17 U/L (0-40) 11/02/23 14:21 ALT 19 U/L (0-41) 11/02/23 14:21 Alkaline Phosphatase 97 U/L (40-130) 11/02/23 14:21 Troponin T Baseline 13 ng/L (0-15) 11/02/23 14:21 Troponin T 120 Minute 14.02 ng/L (0-15) 11/02/23 16:50 Delta Troponin T 1.02 ABS# (0-10) 11/02/23 16:50 Total Protein 6.6 g/dL (6.6-8.7) 11/02/23 14:21 Albumin 3.8 g/dL (3.5-5.2) 11/02/23 14:21 Globulin 2.8 g/dL (1.3-4.6) 11/02/23 14:21 All radiology interpretation(s) finalized by discharge EKG Data EKG 1: Interpretation: Sinus bradycardia with a rate of 50. AR interval 154 normal QT no acute ST changes noted EKG 2: Interpretation: Sinus bradycardia rate of 40 AR interval [address] changes noted Discharge Plan Discharge Patient Disposition: Home Clinical Impression: Atypical chest pain Condition: Stable Prescriptions: New isosorbide mononitrate 30 mg tablet extended release 24 hr 30 mg PO DAILY Qty: 30 0RF Protonix 40 mg tablet,delayed release (DR/EC) 40 mg PO DAILY 28 Days Qty: 30 0RF No Action losartan 25 mg tablet 25 mg PO DAILY PRN (Reason: hypertension) Qty: 30 5RF Phyto Valcordin PO Vitamin C 500 mg Tablet 500 mg PO DAILY aspirin 81 mg tablet,delayed release (DR/EC) 81 mg PO DAILY Discharge Orders: Discharge ED (Routine); Ordered 11/02/23 Ordered By: Cam Dunn Referrals: Guillermo Ulloa MD [Primary Care Provider] - Discharge Diet: Usual diet Discharge Activity: Limit activity as instructed Patient Instructions: Opioid Safety, Pain Management Activity Restrictions/Additional Instructions: Thank you for choosing [facility] for your healthcare needs today. It is very important that you follow up as instructed or that you return to the Emergency Department should you have concerns or if your condition changes or worsens in any way. You were seen today with complaints of chest discomfort. Your cardiac enzymes and EKG did not show any acute changes. Recommend to start Protonix 40 mg daily continue taking baby aspirin daily. Additionally will add isosorbide mononitrate 30 mg once daily trimming caser will make arrangements for you to have an outpatient Lexiscan sestamibi stress test. If you have worsening symptoms return to the emergency room Coding Level of Care Code ED Licensed Retail Supervisor for Juan Antonio Scales
[2023-11-02 14:26] LABS: Basophils % 0.8 %; Eosinophils # 0.4 10^3/uL (0.0-0.8); Eosinophils % 7.1 %; Hematocrit 39.8 % (37-53); Lymphocytes # 1.2 10^3/uL (0.8-4.8); Lymphocytes % 24.1 %; Mean Corpuscular HGB Conc 34.4 g/dL (30-55); Mean Corpuscular Hemoglobin 28.6 pg (27-33); Mean Corpuscular Volume 83.1 fl (82-101); Mean Platelet Volume 9.9 fL (7.4-10.4); Monocytes # 0.4 10^3/uL (0.2-0.9); Monocytes % 8.9 %; Neutrophils # 2.91 10^3/uL (1.8-7.7); Neutrophils % 58.9 %; Nucleated Red Blood Cells % 0 %; Platelet Count 186 10^3/cmm (157-399); Red Blood Count 4.79 10^6/uL (3.85-5.65); Red Cell Distribution Width 12.7 % (12.1-15.1); White Blood Count 4.94 10^3/uL (3.29-11.43)
[2023-11-02 14:48] LABS: Alanine Aminotransferase 19 U/L (0-41); Albumin Level 3.8 g/dL (3.5-5.2); Alkaline Phosphatase 97 U/L (40-130); Anion Gap 16.7 (5-19); Aspartate Amino Transferase 17 U/L (0-40); Blood Urea Nitrogen 15 mg/dL (8-23); Calcium 8.3 mg/dL (8.5-10.5); Carbon Dioxide 22 mmol/L (22-29); Chloride 105 mmol/L (98-107); Creatinine Clr Calc Pharmacy 64.3841; Globulin 2.8 g/dL (1.3-4.6); Glucose 155 mg/dL (65-115); Osmolality Calculated 294 mOsm/kg (285-295); Potassium 3.7 mmol/L (3.5-5.1); Sodium 140 mmol/L (136-145); Total Bilirubin 0.5 mg/dL (0.15-1.2); Total Protein 6.6 g/dL (6.6-8.7)
[2023-11-02 14:49] LABS: Troponin(5th) Baseline 13 ng/L (0-15)
[2023-11-02 15:00] VITALS: BP 110/66; PULSE 56; O2SAT 94
--- NOTE | 2023-11-02 15:45 | ECG_ITS ---
[facility] Test Date: 2023-11-02 Pat Name: Anderson Hobbs Department: Room: Gender: Male Fraud Examiner: : 1950 Requested By: Cam Kim Order Number: [id number] Reading MD: Travis Saldana M.D. Measurements Intervals [place] Rate: 49 P: -22 [place]: 159 QRS: 31 QRSD: 93 T: 58 QT: 446 QTc: 403 Interpretive Statements SINUS BRADYCARDIA Compared to ECG 11/02/2023 13:42:38 No significant changes Electronically Signed On 11-03-2023 14:13:09 CDT by Travis Saldana M.D. [email or web address] county hospitalAxikin Pharmaceuticalsmercy health west hospitalBlue Chip Surgical Center Partners/store/OM/[id number]
[2023-11-02 17:12] VITALS: BP 121/85; PULSE 48; O2SAT 96
[2023-11-02 17:16] LABS: Troponin 5 2HR 14.02 ng/L (0-15); Troponin 5 2HR Delta 1.02 ABS# (0-10)
--- NOTE | 2023-11-06 09:33 | DCPLANNER ---
faxed outpatient order to scheduling for er f/u
== END 2023-11-02 17:58 | disposition home or self-care (01) ==
PROVIDERS: Emergency Provider Family Medicine; PCP Family Medicine
DX: R07.89 Other chest pain (principal); R00.1 Bradycardia, unspecified; Z79.82 Long term (current) use of aspirin
CPT/HCPCS: 36415; 71045; 80053; 84484; 85025; 93005; 99285

== ENCOUNTER 2023-12-29 07:16 | Outpatient (CLI) | payer MEDICARE, MEDICAID, SELFPAY ==
[2023-12-29 07:20] VITALS: BMI 29.0
--- NOTE | 2023-12-29 07:20 | NMCV_ITS ---
NM adelina perf SPECT r/s* [id number] Anderson Hobbs Age: 73 Gender: M : 1950 Exam Date: 12/29/2023 08:04 Ordering Phys: Cam Dunn DO Technologist: KAE Salas Exam Location: [facility] Indications: cp STRESS TEST Please see [facility] for full [facility] IMAGE PROTOCOL Rest/Stress 1 Lexiscan Day Radiopharmaceutical Dose (mCi) Administration Site Administered by Rest: Tc-99m 10.5 IV Glenny Branham, HIDE DROPPER Sestamibi Stress:Tc-99m 33 IV Glenny Carrol, HIDE DROPPER Sestamibi Rest: 29-Dec-2023 60 Discovery 630 Stress: 29-Dec-2023 30 Discovery 630 0.4mg Lexiscan. Images obtained in supine and prone position. SPECT RESULTS Technical Quality: Good Raw Data Analysis: Normal Image Corrections: No attenuation or motion correction applied Summed Stress Score: 3 Summed Rest Score: 4 Summed Difference Score: 0 PERFUSION FINDINGS There is medium sized area of partially reversible perfusion defect seen in apical lateral and inferolateral wall. This is consistent with medium sized area of prior infarct with small area of james-infarct ischemia seen in left circumflex artery territory. FUNCTIONAL RESULTS (calculated via Gated SPECT) Stress Image LV EF (%): 67 Stress EDV (mL):81 TID: 1.24 Stress ESV (mL):27 FUNCTIONAL FINDINGS: There is normal left ventricular systolic function. TID ratio is elevated and is 1.24 IMPRESSIONS 1. Abnormal myocardial perfusion imaging with medium sized area of prior infarct with small area of james-infarct ischemia seen in the left circumflex artery territory 2. LV systolic function is normal 3. TID ratio is elevated and is 1.24. This may represent subendocardial ischemia/multivessel CAD. Juve Andre MD (Electronically Signed) Final Date: 29 December 2023 18:26 S
--- NOTE | 2023-12-29 07:20 | ECG_ITS ---
[facility] Test Date: 2023-12-29 Pat Name: Anderson Hobbs Department: Room: Gender: Male Rechecker: : 1950 Requested By: Cam Kim Order Number: [id number] Jessika MD: Juve Andre M.D. Interpretive Statements LEXISCAN SESTAMIBI STRESS TEST Procedure: At the baseline, the blood pressure was 142/77 mmHg with a heart rate of 50 bpm. The electrocardiogram showed sinus bradycardia, normal axis with normal ST and T's. The Lexiscan was infused over a period of 20 seconds. A total of 0.4 mg of Lexiscan was infused. The stress phase was continued for a total of 5 minutes. Heart rate was at the end of stress phase was 73 bpm and a blood pressure of 127/77 mmHg. The EKG at the peak infusion revealed normal sinus rhythm with no significant ST-T wave changes. Sestamibi was injected 20 seconds after the Lexiscan infusion. Blood pressure at the end of recovery phase was 129/74 mmHg with a heart rate of 57 bpm. Conclusion: 1. Normal EKG response to Lexiscan infusion 2. No Lexiscan induced chest pain or cardiac arrhythmia. 3. Normal blood pressure and heart rate response. 4. Sestamibi/sestamibi perfusion scan pending; see separate report. Electronically Signed On 01-09-2024 21:51:12 CDT by Juve Andre M.D. [email or web address] bay region.Guerrilla RF/store/[id number]
[2023-12-29] MEDS: regadenoson 0.4 Mg/5 ml Syringe IVP (08:42)
[2023-12-29] MEDS: aminophylline 25 mg/mL SDV 10 mL IVP ×2 (08:58→09:01)
[2023-12-29 09:09] VITALS: BP 129/74; PULSE 57
== END 2023-12-29 07:17 | disposition home or self-care (01) ==
PROVIDERS: PCP Family Medicine; Visit Provider Family Medicine
DX: R07.9 Chest pain, unspecified (principal); R06.02 Shortness of breath; R94.39 Abnormal result of other cardiovascular function study
CPT/HCPCS: 36415; 78452; 93017; 96374; 96375; A9500; J0280; J2785

== ENCOUNTER → 2024-01-26 14:34 | Outpatient (BNVA) | payer MEDICARE, MEDICAID, SELFPAY | PROVIDERS: PCP Family Medicine; Visit Provider Internal Medicine Cardiovascular Disease | DX: R00.1 Bradycardia, unspecified (principal); I51.7 Cardiomegaly; R07.89 Other chest pain | CPT/HCPCS: 93005 ==

== ENCOUNTER 2024-09-24 08:01 | Outpatient (CLI) | payer OTHER, MEDICAID, SELFPAY ==
--- NOTE | 2024-09-24 08:09 | CT_ITS ---
WS: [id number] CT ABDOMEN AND PELVIS WITH CONTRAST HISTORY: ACUTE ABDOMINAL PAIN TECHNIQUE: Imaging performed of the abdomen and pelvis with IV contrast. Single phase imaging of the abdomen. Coronal and sagittal reformats are submitted. All CT scans at [facility] use at least one of these dose optimization techniques: automated exposure control; mA and/or kV adjustment per patient size (includes targeted exams where dose is matched to clinical indication); or iterative reconstruction. IV CONTRAST: Omnipaque 350; 100 mL IV. Oral contrast: Yes. DLP: 328.78 mGy.cm COMPARISON: 03/21/2022, 08/18/2013 Lower thorax: 3 mm nodule LEFT lower lobe is stable. There are a few small peripheral linear reticular nodular opacifications in the periphery RIGHT lower lobe. Probably also present on the study from 03/21/2022 but better visualized on today's exam. Heart is normal size. No hiatal hernia. Liver/biliary system: Normal size liver. Focal fatty sparing along the falciform ligament. Gallbladder: Normal. No gallstones or wall thickening. No pericholecystic fluid. Pancreas: Normal size pancreas and pancreatic duct. No adjacent inflammation. Spleen: Normal size spleen. No mass or infarct. Adrenal glands: Normal. Right kidney: Normal. Left kidney: Normal size kidney. Cortical cyst 7 mm upper pole. Aorta: Mild atherosclerosis with no aneurysm. Lymphadenopathy: None. Free fluid: None. GI tract: Prior appendectomy. No GI tract obstruction. No significant diverticular disease. No colitis or inflammation. Abdominal wall: Unremarkable abdominal wall. No hernia. Pelvis: Well-distended urinary bladder. Prostate gland is enlarged encroaching into the bladder. Bilateral patent inguinal canals contain fat only. Bones: Degenerative LEFT curvature lumbar spine. Advanced degenerative changes and disc space narrowing with vacuum disc phenomenon. Facet joint arthritis. CT/CT abdomen pelvis w con* [id number] IMPRESSION: 1. No acute abdominal pelvic abnormalities. 2. No renal obstruction or perinephric stranding. 3. Enlarged, heterogeneous prostate encroaching into the urinary bladder. 4. Prior appendectomy. 5. Bilateral lower lobe pulmonary micronodules are stable since 03/21/2022.
[2024-09-24] MEDS: iohexol 350 mg/mL 500 mL Btl (per mL) PO (08:10)
[2024-09-24] MEDS: iohexol 350 mg/mL 500 mL Btl (per mL) IV (08:47)
== END 2024-09-24 08:02 | disposition home or self-care (01) ==
LOC: RAD 08:03
PROVIDERS: PCP Family Medicine; Visit Provider Family Medicine
DX: R10.9 Unspecified abdominal pain (principal); R91.8 Other nonspecific abnormal finding of lung field; N28.1 Cyst of kidney, acquired; Z90.49 Acquired absence of other specified parts of digestive tract; M47.816 Spondylosis without myelopathy or radiculopathy, lumbar region
CPT/HCPCS: 74177

== ENCOUNTER 2024-11-21 11:58 | Emergency (ER) | payer OTHER, MEDICAID, SELFPAY ==
--- OUTSIDE RECORDS SUMMARY | 2024-11-18 10:30 | XMS_ITS | Encounter Summary ---
Author Organization [facility] Address [address] [place] [address] Care Team Providers Care Early Education Teacher Name Role Phone Unavailable Primary Care Provider Unavailabl e Reason for Visit * Reason Comments Establish Care Hesitancy of micurin ation * Eval and Treat (Routine) - Closed Specialty Diagnoses / Procedures Referred By Leslie t Referred To Contact Urology Diagnoses Hesitancy of micturition Guillermo Ulloa MD [address] [address] Phone: tel: fax: [address] [place] [address] Phone: tel: fax: Referral ID Status Reason Start Date Expiration Date Visits Re quested Visits Authorized [id number] Closed 09/21/2024 10/22/2025 1 1 Encounter Details Date Type Department Care Team (Late st Contact Info) Description 11/18/2024 10:30 AM CDT Office Visit [address] [place] [address] Nahum Garcia NP [address] [place] [address] [address] [place] [address] Hesitancy of micturition (Primary Dx) Social History Tobacco Use Types Packs/Day Years Used Date Smoking Tobacco: Never Assessed Sex and Gender Information Value Date Recorded Sex Assigned at Not on file Legal Sex Male 9:42 AM CDT Gender Identity Not on file Sexual Orientation Not on file documented as of this encounter Progress Notes * Nahum Garcia, REY - 11/18/2024 11:54 AM CDT CONSULT/HISTORY & PHYSICAL Patient: Anderson Hobbs / 74 y.o. / male : 1950 History of Present Illness: Anderson Hobbs is a 74 y.o. year-old male who is referred by Guillermo Ulloa MD for evaluation and treatment of Establish Care (Hesitancy of micurination) Patient here today with male to establish care for hesitancy of micturition. He is currently not onany urological medication. [employer] is present via iPad. He does admit to weak and slow stream, getting up every hour to urinate throughout the day and sometimes going more than once at night. He also reports sometimes not feeling empty and some burning. Denies any other obstructive or irritative voiding symptoms. He will also sometimes have some bladder area discomfort. PVR today is 109 mL. His PSA on 09/14/2024 was 3.43. He also reported that he has been dealing with not being able to retract his foreskin over the penis and this has been going on for a while. She is just now willing to talk about it. Did recommend circumcision or we can try a topical steroid cream and have slightly retract the foreskin daily. He would like to try the steroid cream first. No other issues or concerns atthis time. No past medical history on file. No past surgical history on file. No current outpatient medications on file prior to visit. No current facility-administered medications on file prior to visit. Not on File No family history on file. Social History Socioeconomic History Marital status: Spouse name: Not on file Number of children: Not on file Years of education: Not on file Highest education level: Not on file Occupational History Not on file Tobacco Use Smoking status: Not on file Smokeless tobacco: Not on file Substance and Sexual Activity Alcohol use: Not on file Drug use: Not on file Sexual activity: Not on file Other Topics Concern Not on file Social History Narrative Not on file Social Drivers of Health Food Insecurity: Not on file Transportation Needs: Not on file Feeling Safe: Not on file Housing Stability: Not on file Review of Systems: Review of Systems Gastrointestinal: Negative for abdominal pain. Genitourinary: Positive for dysuria and frequency. Negative for flank pain, hematuria and urgency. PHYSICAL EXAMINATION: Physical Exam Constitutional: Appearance: Normal appearance. Eyes: Extraocular Movements: Extraocular movements intact. Pulmonary: Effort: Pulmonary effort is normal. Abdominal: General: There is no distension. Palpations: Abdomen is soft. There is no mass. Tenderness: There is no abdominal tenderness. There is no right CVA tenderness or left CVA tenderness. Genitourinary: Comments: No penile discharge, tenderness, nodules or indurations. The foreskin was very stenotic and I could not even retract it enough to see the glans or the urethra. The distal end of it looked alittle red and irritated as well. Prostate estimated be 30 to 35 g, smooth, symmetrical with no tenderness, nodules or indurations. Musculoskeletal: Cervical back: Normal range of motion. Neurological: General: No focal deficit present. Mental Status: He is alert and oriented to person, place, and time. Psychiatric: Mood and Affect: Mood normal. Behavior: Behavior normal. LABS: Chemistry: No results found for: NA , K , CL , CO2 , CA , BUN , CREAT , GLUCOSE , ANIONGAP , BCRATIO Hematology No results found for: WBC , MANUALWBC , HGB , HGBPOC , HCT , HCTPOC , PLT , MCV URINALYSIS: Lab Results Component Value Date/Time PHUA 7.0 11/18/2024 10:56 AM URINELEUKOC Negative 11/18/2024 10:56 AM NITRITEUA Negative 11/18/2024 10:56 AM KETONEURINE Negative 11/18/2024 10:56 AM PROTEINUA Negative 11/18/2024 10:56 AM GLUUA Negative 11/18/2024 10:56 AM BLOODUA Negative 11/18/2024 10:56 AM Coags: No results for input(s): PT , INR , APTT in the last 72 hours. PSA: No results found for: PSA , PSADIAG , PSASCRN , PSAFREE TESTOSTERONE: No results found for: TESTOSTTO , FREETESTOSTE , TESTOSTFRE IMAGING: Assessment: 1. Hesitancy of micturition (Primary) - POC URINALYSIS DIPSTICK AUTOMATED Plan: UA does not indicate infection or blood. I will go ahead and run for a molecular UTI test since he was having some dysuria but this could befrom the irritated/stenotic foreskin. Will send in Lotrisone cream to be applied to the distal foreskin twice a day for 2 weeks and slightly retract the foreskin a little each day. Follow-up in office in 6 weeks for reevaluation. Call with any questions or concerns. Signed: Nahum Garcia NP 11/18/2024, 11:54 AM I appreciate the referral from Guillermo Ulloa MD. * Melinda Workman - 11/18/2024 10:42 AM CDT TOBACCO COUNSELING He is not a tobacco/nicotine user. documented in this encounter Plan of Treatment Upcoming Encounters Date Type Department Care Team (Late st Contact Info) Description 01/06/2025 10:30 AM CDT Office Visit [address] [phone] Nahum Garcia NP [address] [place] [phone] documented as of this encounter Procedures Procedure Name Priority Date/Time Associated Diagnosis Comments POC URINALYSIS DIPSTICK AUTOMATED Routine 11/18/2024 10:56 AM CDT Hesitancy of micturition documented in this encounter Results * POC URINALYSIS DIPSTICK AUTOMATED (11/18/2024 10:56 AM CDT) COLOR UA POC Yellow Pale to Dark Yellow [facility] CLARITY UA POC Clear Clear, Other ME [facility] [place] GLUCOSE UA POC Negative Negative, Normal [facility] BILIRUBIN [facility] POC Negative Negative [facility] KET[facility] UA POC Negative Negative [facility] [place] SPECIFIC GRAVITY UA POC 1.010 1.000 - 1.030 [facility] [place] BLOOD UA POC Negative Negative [facility] [place] PH UA POC 7.0 5.0 - 8.0 [facility] [place] PROTEIN UA POC Negative Negative [facility] UROBILINOGEN UA POC 0.2 <2.0 mg/dL [facility] NITRITE UA POC Negative Negative [facility] [place] LEUKOCYTE ESTERASE UA POC Negative Negative [facility] UR[facility] [place] KIT [address] NUMBER POC 403,060 [facility] [place] KIT EXP DATE POC 12.28.24 [facility] [place] Urine 11/18/2024 10:5 6 AM CDT us Nahum Garcia NP POINT OF CARE TESTING Final Result [facility] [place] CLIA# [id number] [address] [place] [id number], documented in this encounter Visit Diagnoses Diagnosis Hesitancy of micturition- Primary Urinary hesitancy documented in this encounter
[2024-11-21] VITALS (7 sets, daily range): BP systolic 115–145; BP diastolic 71–94; PULSE 50–70; RESP 16–20; TEMP 36.6; O2SAT 94–98; BMI 26.6
--- OUTSIDE RECORDS SUMMARY | 2024-11-21 12:04 | XMS_ITS | Clinical Summary ---
Author Organization [facility] Address [address] [place] [address] Care Team Providers Care Skinner Pelts Name Role Phone Unavailable Primary Care Provider Unavailabl e Medications clotrimazole-be tamethasone (LOTRISONE) 1-0.05 % Cream Apply to affected area 2 times daily. For two weeks. Slightly retract foreskin a little each day. 45 Gram 1 11/18/2024 Active Active Problems No known active problems Encounters Date Type Department Care Team Description 11/18/2024 10:30 AM CDT Office Visit [address] [place] [phone] Nahum Garcia NP Hesitancy of micturition (Primary Dx) 11/16/2024 External Device Data [facility] ABSTRACTION Provider, Abstract 09/28/2024 External Device Data [facility] ABSTRACTION Provider, Abstract 09/28/2024 External Device Data [facility] ABSTRACTION Provider, Abstract 09/28/2024 External Device Data [facility] Provider, Abstract 09/21/[address] [place] [phone] Provider, Abstract urology referral appointment 09/21/[address] [place] [phone] Provider, Abstract from Last 3 Months Social History Tobacco Use Types Packs/Day Years Used Date Smoking Tobacco: Never Assessed Sex and Gender Information Value Date Recorded Sex Assigned at Not on file Legal Sex Male 9:42 AM CDT Gender Identity Not on file Sexual Orientation Not on file Plan of Treatment Upcoming Encounters Date Type Department Care Team (Late st Contact Info) Description 01/06/2025 10:30 AM CDT [facility] [address] [place] [address] Nahum Garcia NP [address] [place] [place] [address] Health Maintenance Due Date Last Done Comments DTAP/TDAP/TD VACCINES (1 - Tdap) 02/09/1967 PNEUMOCOCCAL VACCINE 50+ YEARS (1 of 2 - PCV) 02/09/19 67 ZOSTER VACCINE (1 of 2) 02/09/1998 RSV VACCINE (60+ or ) (1 - 1-dose 75+ series) 02/09/2023 INFLUENZA VACCINE (#1) 2024 Procedures Procedure Name Priority Date/Time Associated Diagnosis Comments POC URINALYSIS DIPSTICK AUTOMATED Routine 11/18/2024 10:56 AM CDT Hesitancy of micturition from Last 3 Months Results * POC URINALYSIS DIPSTICK AUTOMATED (11/18/2024 10:56 AM CDT) COLOR UA POC Yellow Pale to Dark Yellow [facility] CLARITY UA POC Clear Clear, Other [facility] GLUCOSE UA POC Negative Negative, Normal [facility] BILIRUBIN UA POC Negative Negative [facility] [place] KETONES UA POC Negative Negative [facility] SPECIFIC GRAVITY UA POC 1.010 1.000 - 1.030 [facility] BLOOD UA POC Negative Negative [facility] PH UA POC 7.0 5.0 - 8.0 [facility] PROTEIN UA POC Negative Negative [facility] UROBILINOGEN UA POC 0.2 <2.0 mg/dL [facility] NITRITE UA POC Negative Negative [facility] LEUKOCYTE ESTERASE UA POC Negative Negative [facility] [place] KIT [address] NUM[address] POC [phone] [facility] [place] KIT EXP DATE POC 12.28.24 [facility] [place] Urine 11/18/2024 10:5 6 AM CDT us Nahmu Garcia SENIOR PROFESSIONAL SERVICES CONSULTANT POINT OF CARE TESTING Final Result [facility] [place] CLIA# [id number] [address] [place] [address], [address] [address], from Last 3 Months Insurance [facility] [id number] [place]ICA[place]
--- OUTSIDE RECORDS SUMMARY | 2024-11-21 12:04 | XMS_ITS | Encounter Summary ---
Author Organization [facility] Address [address] [place] [address] Care Team Providers Care Chart Calculator Name Role Phone Unavailable Primary Care Provider Unavailabl e Encounter Details Date Type Department Care Team (Late st Contact Info) Description 11/16/2024 External Device Data [facility] ABSTRACTION Provider, Abstract NO ADDRESS ON FILE Social History Tobacco Use Types Packs/Day Years Used Date Smoking Tobacco: Never Assessed Sex and Gender Information Value Date Recorded Sex Assigned at Not on file Legal Sex Male 9:42 AM CDT Gender Identity Not on file Sexual Orientation Not on file documented as of this encounter Plan of Treatment Upcoming Encounters Date Type Department Care Team (Late st Contact Info) Description 01/06/2025 10:30 AM CDT Office Visit [facility] [place] [address] [facility] [address] [place] [phone] Nahum Garcia NP [address] [facility] [address] [place] [phone] documented as of this encounter Visit Diagnoses Not on filedocumented in this encounter
--- NOTE | 2024-11-21 12:08 | CTR_ITS ---
PROCEDURE INFORMATION: Exam: CT Abdomen And Pelvis With Contrast Exam date and time: 11/21/2024 1:17 PM Age: 74 years old Clinical indication: Abdominal pain; Localized; Right lower quadrant (rlq); Additional info: Rlq and suprapubic pain. Eval intra-abdominal infection TECHNIQUE: Imaging protocol: Computed tomography of the abdomen and pelvis with contrast. Radiation optimization: All CT scans at this facility use at least one of these dose optimization techniques: automated exposure control; mA and/or kV adjustment per patient size (includes targeted exams where dose is matched to clinical indication); or iterative reconstruction. Contrast material: OMNI 350; Contrast volume: 100 ml; Contrast route: INTRAVENOUS (IV); COMPARISON: 1. CT abdomen pelvis w con* [id number] 09/24/2024 8:[address] abdomen pelvis wo con [id number] 03/21/2022 9:53 AM RADIATION DOSE METRICS: Total DLP (mGy-cm): 489.73 FINDINGS: Lungs: There is subsegmental atelectasis in the lung bases. There are scattered noncalcified nodules in both lower lobes measuring up to 5 mm. 2. Bilateral lower lung nodules are stable since 09/24/2024. For patients at low risk (minimal or absent history of smoking and of other known risk factors), no routine follow-up is indicated. For patients at high risk (history of smoking or of other known risk factors), consider optional CT Chest at 12 months. (Reference: Davy) Liver: The liver is normal. Gallbladder and biliary ducts: The gallbladder is normal. There is no biliary dilation. Pancreas: There is mild atrophy of the pancreas. Spleen: The spleen is unremarkable. Adrenal glands: The adrenal glands are unremarkable. Kidneys and ureters: The kidneys are unremarkable. No hydronephrosis or stones. No ureteral dilation. Stomach and bowel: The stomach is unremarkable. The small bowel is nondilated. The colon is unremarkable. Appendix: The appendix is not visible. Intraperitoneal space: There is no free air or significant intraperitoneal free fluid. Vasculature: There is mild aortic atherosclerotic disease. The portal, splenic and superior mesenteric veins are patent. Lymph nodes: There is no lymphadenopathy in the retroperitoneum, mesentery, pelvis or inguinal regions. Urinary bladder: No bladder wall thickening or stones. Multiple tiny diverticula in the anterior bladder wall. Reproductive: There is nonspecific mild enlargement of the prostate gland. Bones/joints: There is moderate degenerative disease in the lumbar spine. There is mild degenerative disease of both hips. The bony pelvis is intact. Soft tissues: There is a small fat containing left inguinal hernia. CT/CT abdomen pelvis w con* [id number] IMPRESSION: 1. No acute findings. 2. Bilateral lower lung nodules are stable since 2021. No further follow-up imaging is recommended. (Davy) 3. Incidental findings above. REFERENCES: Davy Pineda, et al. Guidelines for Management of Incidental Pulmonary Nodules Detected on CT Images: From the Fleischner Society 2017. Radiology. 2017;284(1):228-243.
--- NOTE | 2024-11-21 12:08 | ECG_ITS ---
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 Measurements Intervals [place] Rate: 57 P: -2 AK: 158 QRS: 8 QRSD: 94 T: 65 QT: 411 QTc: 402 Interpretive Statements SINUS BRADYCARDIA Compared to ECG 01/26/2024 14:41:07 Left ventricular hypertrophy no longer present Electronically Signed On 11-21-2024 18:45:40 CDT by Irina Johnson M.D. [id number]
[2024-11-21 12:21] LABS: Hematocrit 40.3 % (37-53); Hemoglobin 13.90 g/dL (11.27-16.99); Mean Corpuscular HGB Conc 34.5 g/dL (30-55); Mean Corpuscular Hemoglobin 27.9 pg (27-33); Mean Corpuscular Volume 80.9 fl (82-101); Nucleated Red Blood Cells % 0 %; Platelet Count 194 10^3/cmm (157-399); Red Blood Count 4.98 10^6/uL (3.85-5.65); White Blood Count 6.59 10^3/uL (3.29-11.43)
--- NOTE | 2024-11-21 12:44 | W.ED.WEAKNES ---
HPI - Weakness General: Chief complaint: Weakness Stated complaint: chest tight / dizzy / lethargy Time Seen by Provider: 11/21/24 12:02 History of Present Illness: HPI: Patient with history of appendectomy remotely presenting to the emergency department concern for global weakness. Describes weakness as feeling as though he does not have energy. Additionally states that he was seen at [facility] for abdominal pain and no CT imaging was obtained. This occurred last week. States he has been eating and drinking per baseline. Came to the emergency department today out of concern of his . REVIEW OF SYSTEMS: 10 systems reviewed and otherwise unremarkable except for those noted in HPI. PHYSCIAL EXAM: Triage vital signs reviewed Gen: A&O NAD HEENT: NCAT, EOMI, not icteric. External ears normal. No rhinorrhea. Moist mucous membranes. Neck: Supple, full range of motion, no observable masses, No meningeal sign. Lungs: No Respiratory distress. CV: Bradycardia, no edema. Abdomen: Soft, nondistended, No rebound tenderness. MSK: No joint swelling, no redness. Skin: No rashes, petechiae, lesions. Normal color per patient. Neuro: Normal Gait, Grossly intact. Psych: Appropriate for situation. PROCEDURES: EKG: Rate: Bradycardia Rhythm: Sinus [place]: Normal variant Intervals: Normal Ischemia: No STEMI criteria Related Data Home Medications ?Medication ?Instructions ?Recorded ?Confirmed ascorbic acid (vitamin C) 500 mg 500 mg PO DAILY 03/21/22 11/21/24 tablet (Vitamin C) aspirin 81 mg tablet,delayed 81 mg PO DAILY 08/16/22 11/21/24 release magnesium 200 mg tablet 200 mg PO DAILY 01/26/24 11/21/24 vitamin B complex 1 tab PO DAILY 01/26/24 11/21/24 losartan 25 mg tablet 25 mg PO DAILY PRN high blood 11/21/24 11/21/24 pressure metoprolol succinate 25 mg 12.5 mg PO DAILY 11/21/24 11/21/24 tablet,extended release 24 hr nitroglycerin 0.4 mg sublingual 0.4 mg sublingual PRN PRN Chest 11/21/24 11/21/24 tablet Pain pantoprazole 40 mg tablet,delayed 40 mg PO DAILY 11/21/24 11/21/24 release tamsulosin 0.4 mg capsule 0.4 mg PO DAILY 11/21/24 11/21/24 Allergies Allergy/AdvReac Type Severity Reaction Status Date / Time No Known Allergies Allergy Verified 01/26/24 14:50 PFSH ED PFSH: Medical History (Updated 11/21/24 @ 14:45 by Fede Yuan MD) CAD (coronary artery disease) Acromioclavicular joint arthritis Family History Other No pertinent family history Social History Smoking and tobacco/nicotine status: never used tobacco/nicotine Second hand smoke exposure: No Alcohol intake: never Substance/Drug Use: never Course Vital Signs: Vital signs: Vital Signs Temperature 97.9 F 11/21/24 12:04 Pulse Rate 54 L 11/21/24 14:00 Respiratory Rate 20 H 11/21/24 14:00 Blood Pressure 141/94 11/21/24 14:00 Pulse Oximetry 96 11/21/24 14:00 Oxygen Delivery Me thod Room Air 11/21/24 12:06 MDM - Weakness Medical Decision Making MEDICAL DECISION MAKING: Differential diagnoses considered but not limited to: Occult intra-abdominal surgical infectious emergency, urinary tract infection, electrolyte derangement, occult ACS, viral syndrome, dehydration, malnourishment. Vitals nonactionable, including negative orthostatic vital signs. Given history, examination, and pretest risk factors, obtain CT imaging of the abdomen with contrast given right lower quadrant abdominal pain that has not been previously imaged in a 74-year-old male. Patient is status post appendectomy looking for other source of infection including abscess, urologic infection or UroLift, atypical small bowel obstruction or diverticulitis. CT not emergent. Overall patient's workup only notable for sterile pyuria. Educated about these findings and told to follow-up with PCM. CT negative. Orthostatics negative. Patient safe for disposition home at this time. Encouraged full and normal diet at home. DISPO: JAVIER Yuan MD Staff physician, [facility] [place] Emergency Department [phone] Lab Data 11/21/24 12:16 11/21/24 12:16 Radiology Impressions Abdomen/Pelvis CT 11/21/24 12:08 IMPRESSION: 1. No acute findings. 2. Bilateral lower lung nodules are stable since 2022. No further follow-up imaging is recommended. (Davy) 3. Incidental findings above. REFERENCES: Davy Pineda, et al. Guidelines for Management of Incidental Pulmonary Nodules Detected on CT Images: From the Fleischner Society 2017. Radiology. 2017;284(1):228-243. Laboratory Results WBC 6.59 10^3/uL (3.29-11.43) 11/21/24 12:16 RBC 4.98 10^6/uL (3.85-5.65) 11/21/24 12:16 Hgb 13.90 g/dL (11.27-16.99) 11/21/24 12:16 Hct 40.3 % (37-53) 11/21/24 12:16 MCV 80.9 fl (82-101) L 11/21/24 12:16 MCH 27.9 pg (27-33) 11/21/24 12:16 MCHC 34.5 g/dL (30-55) 11/21/24 12:16 RDW 13.0 % (12.1-15.1) 11/21/24 12:16 Plt Count 194 10^3/cmm (157-399) 11/21/24 12:16 MPV 10.0 fL (7.4-10.4) 11/21/24 12:16 Neut % (Auto) 68.6 % 11/21/24 12:16 Lymph % (Auto) 17.5 % 11/21/24 12:16 [place] % (Auto) 8.6 % 11/21/24 12:16 Eos % (Auto) 4.2 % 11/21/24 12:16 Baso % (Auto) 0.8 % 11/21/24 12:16 Neut # (Auto) 4.52 10^3/uL (1.8-7.7) 11/21/24 12:16 Lymph # (Auto) 1.2 10^3/uL (0.8-4.8) 11/21/24 12:16 [place] # (Auto) 0.6 10^3/uL (0.2-0.9) 11/21/24 12:16 Eos # (Auto) 0.3 10^3/uL (0.0-0.8) 11/21/24 12:16 Baso # (Auto) 0.1 10^3/uL (0.0-0.1) 11/21/24 12:16 Nucleated RBC % (auto) 0 % 11/21/24 12:16 Nucleated RBCs # 0.0 /100WBC 11/21/24 12:16 Sodium 141 mmol/L (136-145) 11/21/24 12:16 Potassium 4.2 mmol/L (3.5-5.1) 11/21/24 12:16 Chloride 105 mmol/L (98-107) 11/21/24 12:16 Carbon Dioxide 24 mmol/L (22-29) 11/21/24 12:16 Anion Gap 16.2 (5-19) 11/21/24 12:16 BUN 11 mg/dL (8-23) 11/21/24 12:16 Creatinine 0.8 mg/dL (0.7-1.2) 11/21/24 12:16 GFR Calculation Not Reportable 11/21/24 12:16 Glucose 148 mg/dL (65-115) H 11/21/24 12:16 Calculated Osmolality 294 mOsm/kg (285-295) 11/21/24 12:16 Lactic Acid 1.8 mmol/L (0.5-2.2) 11/21/24 12:16 Calcium 8.7 mg/dL (8.5-10.5) 11/21/24 12:16 Total Bilirubin 0.5 mg/dL (0.15-1.2) 11/21/24 12:16 AST 20 U/L (0-40) 11/21/24 12:16 ALT 18 U/L (0-41) 11/21/24 12:16 Alkaline Phosphatase 99 U/L (40-130) 11/21/24 12:16 Troponin T Baseline 12 ng/L (0-15) 11/21/24 12:16 Troponin T 120 Minute 12.82 ng/L (0-15) 11/21/24 14:10 Delta Troponin T 0.82 ABS# (0-10) 11/21/24 14:10 Total Protein 6.5 g/dL (6.6-8.7) L 11/21/24 12:16 Albumin 3.9 g/dL (3.5-5.2) 11/21/24 12:16 Globulin 2.6 g/dL (1.3-4.6) 11/21/24 12:16 Lipase 34 U/L (13-60) 11/21/24 12:16 Urine Color Yellow (Yellow) 11/21/24 13:37 Urine Appearance Cloudy (CLEAR) A 11/21/24 13:37 Urine pH 7.0 (5-7) 11/21/24 13:37 Ur Specific [place] 1.016 (1.005-1.030) 11/21/24 13:37 Urine Protein Negative (Negative) 11/21/24 13:37 Urine Glucose (UA) Negative (Normal) 11/21/24 13:37 Urine Ketones Negative (Negative) 11/21/24 13:37 Urine Blood Negative (Negative) 11/21/24 13:37 Urine Nitrate Negative (Negative) 11/21/24 13:37 Urine Bilirubin Negative (Negative) 11/21/24 13:37 Urine Urobilinogen 0.2 mg/dL (Negative) 11/21/24 13:37 Ur Leukocyte Esterase 3+ (Negative) A 11/21/24 13:37 Urine RBC 0-2 /hpf (0-2) 11/21/24 13:37 Urine WBC 21-50 /hpf (0-5) H 11/21/24 13:37 Ur Squamous Epith Cells 0-5 /hpf (0-5) 11/21/24 13:37 Amorphous Sediment Not Reportable 11/21/24 13:37 Urine Bacteria None seen /hpf (NONE) 11/21/24 13:37 Hyaline Casts 1.21 /lpf 11/21/24 13:37 All radiology interpretation(s) finalized by discharge Discharge Plan Discharge Patient Disposition: Home Clinical Impression: Weakness, Pyuria, sterile Condition: Stable Prescriptions: No Action vitamin B complex Tablet 1 tab PO DAILY magnesium 200 mg tablet 200 mg PO DAILY ascorbic acid (vitamin C) [Vitamin C] 500 mg Tablet 500 mg PO DAILY aspirin 81 mg tablet,delayed release (DR/EC) 81 mg PO DAILY tamsulosin 0.4 mg capsule 0.4 mg PO DAILY nitroglycerin 0.4 mg tablet, sublingual 0.4 mg sublingual PRN PRN (Reason: Chest Pain) metoprolol succinate 25 mg tablet extended release 24 hr 12.5 mg PO DAILY pantoprazole 40 mg tablet,delayed release (DR/EC) 40 mg PO DAILY losartan 25 mg tablet 25 mg PO DAILY PRN (Reason: high blood pressure) Discharge Orders: Discharge ED (Routine); Ordered 11/21/24 Ordered By: Fede Yuan Referrals: Guillermo Ulloa MD [Primary Care Provider, [facility]] Discharge Diet: Advance as tolerated and Usual diet Discharge Activity: Resume usual activity and Increase activity as tolerated Patient Instructions: Opioid Safety, Pain Management, Patient Portal & Lela Instructions Activity Restrictions/Additional Instructions: It has been a pleasure caring for you in the emergency department. Please ensure that you follow-up with your primary care physician for review of all data obtained during this encounter including any incidental findings and laboratory values. Keep in mind that if your condition worsens in any way, I strongly recommend that you return to the emergency department for repeat evaluation immediately. Print Language: German Coding Level of Care Code ED Ventilation Worker for Juan Antonio Scales
[2024-11-21 12:49] LABS: Troponin(5th) Baseline 12 ng/L (0-15)
[2024-11-21 12:52] LABS: Alanine Aminotransferase 18 U/L (0-41); Albumin Level 3.9 g/dL (3.5-5.2); Alkaline Phosphatase 99 U/L (40-130); Anion Gap 16.2 (5-19); Aspartate Amino Transferase 20 U/L (0-40); Blood Urea Nitrogen 11 mg/dL (8-23); Calcium 8.7 mg/dL (8.5-10.5); Carbon Dioxide 24 mmol/L (22-29); Chloride 105 mmol/L (98-107); Creatinine Clr Calc Pharmacy 70.7142; Globulin 2.6 g/dL (1.3-4.6); Glucose 148 mg/dL (65-115); Lipase 34 U/L (13-60); Osmolality Calculated 294 mOsm/kg (285-295); Potassium 4.2 mmol/L (3.5-5.1); Sodium 141 mmol/L (136-145); Total Protein 6.5 g/dL (6.6-8.7)
[2024-11-21 12:53] LABS: Lactic Sepsis W/Reflex 1.8 mmol/L (0.5-2.2)
[2024-11-21] MEDS: iohexol 350 mg/mL 500 mL Btl (per mL) IV (13:20)
[2024-11-21 13:44] LABS: Glucose Urine UA Negative (Normal); Nitrate Urine Negative (Negative); Specific Gravity, Urine 1.016 (1.005-1.030)
[2024-11-21 13:46] LABS: Add Urine Microscopic? YES
[2024-11-21 14:30] LABS: Troponin 5 2HR 12.82 ng/L (0-15); Troponin 5 2HR Delta 0.82 ABS# (0-10)
== END 2024-11-21 15:05 | disposition home or self-care (01) ==
PROVIDERS: Emergency Provider General Practice; PCP Family Medicine
DX: R53.1 Weakness (principal); R82.81 Pyuria; Z79.82 Long term (current) use of aspirin; I25.10 Atherosclerotic heart disease of native coronary artery without angina pectoris
CPT/HCPCS: 36415; 74177; 80053; 81001; 83605; 83690; 84484; 85025; 87086; 93005; 99285

== ENCOUNTER → 2025-01-27 13:04 | Outpatient (BNVA) | payer OTHER, MEDICAID, SELFPAY | PROVIDERS: PCP Family Medicine; Visit Provider Internal Medicine Cardiovascular Disease | DX: I25.9 Chronic ischemic heart disease, unspecified (principal); I10 Essential (primary) hypertension; E78.5 Hyperlipidemia, unspecified; R53.1 Weakness | CPT/HCPCS: 99214 ==